=== PATIENT | male | born 1955 | race Caucasian/White ===

== ENCOUNTER → 2021-10-06 | Day surgery (SDC) | payer MEDICARE, MEDICAID ==
[~2021-10-06] VITALS: Ht 165.1 cm; Wt 108.0 kg
[~2021-10-06] MED LIST: ATOR40TA59 PO; CHOL500021 PO; DEXL30CA PO; ERGO800010 PO; EZET10TA20 PO; FERR325T14 PO; IV NORMAL SALINE 1000ML BAG 1,000 ML IV ONE; LIDOCAINE 2% PF 5 ML VIAL. ONE; LISI-379 PO; METF500T3 PO; METO-239 PO; MULT-245 PO; PROPOFOL 10 MG/ML (20ML) VIAL. IV ONE; RIVA10TA PO; RIVA20TA2 PO; SEMA0.25 SQ; TORS100T3 PO
[2021-10-06 13:15] VITALS: BP 158/101
--- NOTE | 2021-10-06 15:14 | PDOC1 ---
History and Physical Date of Admission Date of Admission DATE: 10/06/21 TIME: 15:11 Identification/Chief Complaint Chief Complaint anemia, + cologuard stool test History of Present Illness History of Present Illness history of anemia and + cologuard. Here for egd and colonoscopy Past Medical History Cardiovascular: HTN, ID Pulmonary: COPD CENTRAL NERVOUS SYSTEM: CVA GI: Constipation, GERD, Other Hepatobiliary: Hep A/B/C Endocrine: Diabetes Family History Family History: Hypertension Social History ALCOHOL: none Drugs: None Current Medications Current Medications Current Medications Sodium Chloride 1,000 ml @ 75 mls/hr 1X ONCE IV Last administered on 10/06/21at 13:36; Start 10/06/21 at 13:30; Stop 10/07/21 at 02:49 Propofol (Diprivan) 200 mg STK-MED ONCE IV ; Start 10/06/21 at 14:13; Stop 10/06/21 at 14:13; Status DC Lidocaine HCl (Lidocaine Pf 2% Vial) 5 ml STK-MED ONCE .ROUTE ; Start 10/06/21 at 14:13; Stop 10/06/21 at 14:13; Status DC Active Scripts Active Xarelto (Rivaroxaban) 10 Mg Tablet 20 Mg PO DAILYWSUP 30 Days Reported Torsemide 100 Mg Tablet 50 Mg PO DAILY Ozempic (Semaglutide) 0.25 Mg/0.2 Ml Pen.injctr 0.5 Mg SQ WEEKLY Multi Vitamin Daily (Multivitamin) 1 Each Tablet 1 Tab PO DAILY 30 Days Metoprolol Succinate ( Xl ) (Metoprolol Succinate) 25 Mg Tab.er.24h 50 Mg PO DAILY Ferrous Sulfate 325 Mg Tablet 1 Tab PO WEEKLY ON FRIDAYS Zetia (Ezetimibe) 10 Mg Tablet 1 Tab PO DAILY 30 Days Ergocalciferol (Ergocalciferol (Vitamin D2)) 200 Mcg/1 Ml Drops 1,250 Mcg PO WEEKLY Dexilant (Dexlansoprazole) 30 Mg Cap.drSpringmp 1 Cap PO PRN DAILY PRN 30 Days D3-50 (Cholecalciferol (Vitamin D3)) 50,000 Unit Capsule 5,000 Unit PO DAILY Atorvastatin Calcium 40 Mg Tablet 80 Mg PO HS Allergies Allergies: Coded Allergies: No Known Allergies (Verified Allergy, Unknown, 10/06/21) Physical Exam General: Alert, Oriented X3, Cooperative HEENT: Atraumatic Lungs: Clear to auscultation Heart: S1S2, RRR Abdomen: Normal bowel sounds, Soft, No tenderness, No hepatosplenomegaly Psych/Mental Status: Mental status NL Vitals Vitals Vital Signs Date Time Temp Pulse Resp B/P (MAP) Pulse Ox O2 Delivery O2 Flow Rate FiO2 10/06/21 13:15 97.7 101 20 96 97.7 Labs Labs Laboratory Tests Test 10/06/21 13:20 Glucose (Fingerstick) 85 mg/dL (70-99) Laboratory Tests Test 10/06/21 13:20 Glucose (Fingerstick) 85 mg/dL (70-99) VTE Prophylaxis Ordered VTE Prophylaxis Devices: Contraindicated VTE Pharmacological Prophylaxi: Contraindicated Assessment/Plan Assessment/Plan Outpt EGD and colonoscopy Justifications for Admission Other Justification DAVY KELLOGG MD Oct 06, 2021 15:14
--- NOTE | 2021-10-06 15:38 | PDOC4 ---
PROCEDURE Procedure EGD and colonoscopy Anemia, GERD Anesthesia- propofol E- normal G- normal D- normal- bx Colon- 3 mm descending polyp 3 x 3 mm hyperplastic polyps PLan- no source for anemia seen- check biopsies continue present meds DAVY KELLOGG MD Oct 06, 2021 15:38
[2021-10-06 16:00] VITALS: BP 123/78
--- NOTE | 2021-10-11 17:07 | PATHOLOGY ---
[facility] Accession Number: [id number] . 01 Material submitted: . PART A: duodenum - DUODENAL BX R/O SPRUE PART B: colon - DESCENDING COLON POLYPS. Modifiers: descending PART C: sigmoid colon - SIGMOID COLON POLYPS . 01 Clinical history: . GERD, CHRONIC CONSTIPATION EGD/COLONOSCOPY . 02 Diagnosis: A. Duodenal biopsy: - No significant pathologic abnormalities. . B. Colon biopsy, descending colon polyp: - Hyperplastic polyp. . C. Colon biopsies, sigmoid colon polyps: - Hyperplastic polyps. (JPM:tim; 10/11/2021) [facility] [place] 1256 Local . 02 Comment: Sections of the duodenal biopsy reveal segments of duodenal and small intestine mucosa. Where best oriented, the mucosal villi show no sprue-like changes or significant inflammatory changes. . Sections of the descending colon and sigmoid colon biopsies reveal several hyperplastic polyps. There are no adenomatous changes or evidence of malignancy. (JPM:tim; 10/11/2021) . 02 Electronically signed: . Pedrito Monk MD, Pathologist NPI- [id number] . 01 Gross description: . A. The specimen is received in formalin, labeled "Kamron [place], duodenal BX, R/O sprue". Received are 2 segments of pale glasgow tissue measuring 0.3 and 0.4 cm in maximum dimension. The specimen is entirely submitted in cassette A1. . B. The specimen is received in formalin, labeled "Hr Generalist, Kamron, descending colon polyps". Received are 2 segments of pale glasgow tissue both measuring 0.3 cm in maximum dimensions. The specimen is entirely submitted in cassette B1. . C. The specimen is received in formalin, labeled "Marva, Kamron, sigmoid colon polyps". Received are 2 segments of pale glasgow tissue measuring 0.3 and 0.5 cm in maximum dimensions. The specimen is entirely submitted in cassette C1. ([facility]; 10/10/2021) N[facility]/NRI 10/11/2021 1251 Local . 02 Pathologist provided ICD-10: K63.5 . 02 CPT . 593638, 661031, 691330 Specimen Comment: A courtesy copy of this report has been sent to [phone] Specimen Comment: [id number] Specimen Comment: Report sent to / DR MOSS Performed at: 01 [facility] [address], [place] [id number] MD Kev Cheng MD Phone: [phone] Performed at: 02 [facility] [address], [place] [id number] MD Pedrito Monk MD Phone: [phone]
== END | disposition home or self-care (01) ==
LOC: SURG 12:48
PROVIDERS: ATTEND Internal Medicine Gastroenterology
DX: R19.5 Other fecal abnormalities (principal); D50.9 Iron deficiency anemia, unspecified; K21.9 Gastro-esophageal reflux disease without esophagitis; K59.09 Other constipation; K63.5 Polyp of colon; K63.89 Other specified diseases of intestine; K31.89 Other diseases of stomach and duodenum; I10 Essential (primary) hypertension; I25.2 Old myocardial infarction; J44.9 Chronic obstructive pulmonary disease, unspecified; E11.9 Type 2 diabetes mellitus without complications; E78.00 Pure hypercholesterolemia, unspecified; I48.91 Unspecified atrial fibrillation; G47.30 Sleep apnea, unspecified; F41.9 Anxiety disorder, unspecified; F32.9 Major depressive disorder, single episode, unspecified; I25.10 Atherosclerotic heart disease of native coronary artery without angina pectoris; Z86.73 Personal history of transient ischemic attack (TIA), and cerebral infarction without residual deficits; Z87.891 Personal history of nicotine dependence; Z79.899 Other long term (current) drug therapy; Z98.890 Other specified postprocedural states
CPT/HCPCS: 43239; 45380; 82962; J2704